=== PATIENT | male | born 1945 | race African-American/Black ===

== ENCOUNTER → 2016-06-29 | Outpatient (CLI) | payer MEDICARE, OTHER ==
[2016-06-11 10:46] VITALS: BP 137/62
[~2016-06-29] MED LIST: ACET325C PO; CALC200T3 PO
--- NOTE | 2016-06-29 15:21 | RAD ---
CT of the head without contrast, 06/29/2016: History: Follow-up subdural hematoma Comparison is made to a study from 06/10/2016. A angus hole is again noted in the left parietal region. The left-sided subdural fluid collection has decreased in size. There are low density and medium density components. Effacement of the underlying cortical sulci has diminished. There is only a slight residual left right shift of the midline structures. The ventricles are within normal limits in size. There is underlying cerebral and cerebellar atrophy. There are mild unchanged deep white matter lucencies. No new abnormality is detected. IMPRESSION: The mixed density left subdural hematoma has decreased in size since 06/10/2016, with only minimal residual mass effect.
== END | disposition home or self-care (01) ==
LOC: CT 15:11
PROVIDERS: ATTEND Internal Medicine
DX: S06.5X0A Traumatic subdural hemorrhage without loss of consciousness, initial encounter (principal); G31.9 Degenerative disease of nervous system, unspecified
CPT/HCPCS: 70450